=== PATIENT | male | born 1980 | race Caucasian/White ===

== ENCOUNTER 2022-08-02 23:16 | Emergency (ER) | payer MEDICAID, OTHER ==
[2022-08-03] MEDS ORDERED: Ibuprofen 400 MG Tab PO ONE (00:58)
== END 2022-08-03 01:19 ==
LOC: DL.ED 23:16
DX: S71.152A Open bite, left thigh, initial encounter (principal); S70.312A Abrasion, left thigh, initial encounter; W54.0XXA Bitten by dog, initial encounter
CPT/HCPCS: 99283; A9270-GY